=== PATIENT | male | born 1990 | race Caucasian/White ===

== ENCOUNTER → 2022-12-01 13:11 | Outpatient (CLI) | payer OTHER, SELFPAY ==
--- NOTE | 2022-12-01 13:13 | DI.MRI.S_ITS ---
PROCEDURE: MR LUMBAR SPINE WO CON INDICATIONS: LOW BACK PAIN TECHNIQUE: Noncontrast sagittal T1 spin echo and T2 fast echo, sagittal STIR, and T2 fast spin echo through the lumbar spine. In cases with scoliosis, additional coronal T2 fast spin echo may be performed. COMPARISON: None. FINDINGS: Image quality: Excellent. Alignment and Curvature: There is normal bony alignment. Bone Marrow: Marrow is of normal overall signal. No acute vertebral body compression fractures. Spinal Cord: Conus medullaris terminates at the T12-L1 level. Visualized cord demonstrates normal signal and size. Paraspinous Soft Tissues: No paravertebral masses. T12-L1: Normal appearance. L1-L2: No significant abnormality is seen. L2-L3: The disc height and disk signal are well-preserved. Mild to moderate disc bulge is seen at this level. Minimal bilateral neural foraminal narrowing can be seen. Minimal central canal narrowing is seen. L3-L4: The disc height and disk signal are well-preserved. Mild to moderate disc bulge is seen, which is eccentric to the right. Mild to moderate facet hypertrophy is seen. There is moderate right-sided and minimal left-sided neural foraminal narrowing. Mild central canal narrowing is seen. L4-L5: The disc height and disk signal are relatively well-preserved. Moderate disc bulge is seen, with a central/left disc extrusion, with mild superior migration of the disc material, as on series 2, image 9 and on series 5, image 26 and on series 6, image 9. There is a focal annular fissure seen posteriorly. Moderate facet joint hypertrophy is seen. At least moderate bilateral neural foraminal narrowing can be seen. There is a degree of compression seen upon the exiting nerve roots. Moderate central canal narrowing is seen. L5-S1: The disc height and disk signal are well-preserved. Mild generalized disc bulge is seen. Mild facet joint hypertrophy is seen. At least moderate bilateral neural foraminal narrowing can be seen. Mild central canal narrowing is seen. IMPRESSION: At the L4-L5 level, there is a central/left disc extrusion, with mild superior migration disc material. At least moderate bilateral neural foraminal narrowing can be seen at this level and there is moderate central canal narrowing at this level. Milder degenerative changes are seen elsewhere. Dictated by: Juan Ambrocio M.D. on 12/01/2022 at 17:09 Approved by: Juan Ambrocio M.D. on 12/01/2022 at 17:12
== END ==
PROVIDERS: Referring Provider Preventive Medicine Aerospace Medicine; Visit Provider Preventive Medicine Aerospace Medicine
DX: M51.26 Other intervertebral disc displacement, lumbar region (principal); M48.061 Spinal stenosis, lumbar region without neurogenic claudication; M47.816 Spondylosis without myelopathy or radiculopathy, lumbar region
CPT/HCPCS: 72148